=== PATIENT | female | born 1955 ===

== ENCOUNTER 2016-11-13 21:25 | Emergency (ER) | payer OTHER ==
[~2016-11-13 21:25] MED LIST: BENADRYL25 M1 PO; SUBOXONE1 MI2 SL
--- NOTE | 2016-11-13 23:38 | ED CLINICAL REPORT ---
Clinical Report - Physicians/Mid Levels [facility] [address] [place] [address] 11/13/2016 21:27 Patient: WALLY CASTRO Time Seen: 21:50. Arrived- By private vehicle. Historian- patient. HISTORY OF PRESENT ILLNESS Chief Complaint: LESION. This started several days ago and is still present. It was gradual in onset and has been constant. It is described as painful. It has been located on the left shoulder and left buttock. A cause has been identified (Injecting heroin at these sites). Similar symptoms previously: Many times. REVIEW OF SYSTEMS No chills, fever, sweats, calf pain or chest pain. No cough, difficulty breathing, pedal edema, palpitations or abdominal pain. No constipation, diarrhea, nausea, vomiting or urinary problems. All systems otherwise negative, except as recorded above. PAST HISTORY Problems: Abcesses. Substance Abuse. Additional Surgeries: Hysterectomy. Medications: None. Allergies: No Known Drug Allergy. SOCIAL HISTORY Current every day heavy tobacco smoker (cigarette)- 1 pack per day. History of drug use: heroin. No alcohol use. FAMILY HISTORY No significant family medical history. ADDITIONAL NOTES The nursing notes have been reviewed. PHYSICAL EXAM Vital Signs: 11/13/2016 21:34 BP: 138/79. HR: 85. RR: 18. O2 saturation: 99%. Temp: 99.9 F. Have been reviewed. Eyes: Pupils equal, round and reactive to light. ENT: Pharynx normal. Neck: Neck supple. CVS: Normal heart rate and rhythm. Heart sounds normal. Respiratory: No respiratory distress. Breath sounds normal. Abdomen: Nontender. No organomegaly. Skin: Large area of cellulitis with tenderness, erythema and warmth to left buttock. Single large abscess with fluctuance and cellulitis to left arm. Extremities: No calf tenderness. PROGRESS AND PROCEDURES Incision & Drainage of Abscess: Time-out completed immediately before the procedure. The abscess is located in the left arm. The risks of the procedure, benefits and alternatives were explained. Consent was obtained. Anesthesia provided using 2% lidocaine no epi. Skin cleansed with Betadine. The abscess was incised with a #11 surgical blade. A large amount of pus was drained. Cavity was irrigated with saline and packed with gauze. Sample obtained for cultures. A dressing was applied. Patient/family counseled. Old medical records ordered. Old records unavailable. Disposition: Discharged. Condition: stable. CLINICAL IMPRESSION Multiple deep abscesses with incision and drainage. INSTRUCTIONS (Continue warm packs on the area on your buttock as discussed. This does not appear ready to be drained at this point. It will likely come to a head over the next several days. Please have this area evaluated at your follow-up appointment as discussed.). Warnings: Further evaluation is necessary. GENERAL WARNINGS: Return or contact your physician immediately if your condition worsens or changes unexpectedly, if not improving as expected, or if other problems arise. Prescription Medications: Bactrim DS 800 mg / 160 mg: take 2 tablets orally every 12 hours for 10 days. No refill. Substitution is permissible. Understanding of the discharge instructions verbalized by patient. Follow-up with: [facility], , , [address] [address] Follow up Sunday in two days for wound check and packing removal. Call for an appointment. (Electronically signed by Sam Garcia MD 11/13/2016 23:55)
--- NOTE | 2016-11-13 23:38 | ED ORDER SUMMARY ---
..... Patient: WALLY CASTRO OrderSheet [facility] VisitID: [id number] [address] [place] [address] 61y, F Registration Date/Time: 11/13/2016 ORDER SHEET Weight: 58.9 kg (stated) Allergies: No Known Drug Allergy GENERAL ORDERS: Culture, Wound Deep (Arm) (abcess) Urgent (23:33 11/13/2016 Barbara LEDESMA) (Ack 23:34 AMcQuoid ER Tech1) (23:46 Boniwiporsche R.N.) MEDICATION ORDERS: Lidocaine Injection 2 % (soln) (NOW, place at bedside, with syringes & needles) (23:15 11/13/2016 ROZINAndjose david R.N. verbal order read back to Barbara LEDESMA) (23:16 EIndjose david R.N.) IV FLUIDS: ORDER SHEET NOTES: [Electronically signed by Matias Smith R.N. (23:49 11/13/2016)] [Electronically signed by Sam Garcia MD (23:55 11/13/2016)] [Electronically locked/signed by Matias Smith R.N. (23:49 11/13/2016)]
--- NOTE | 2016-11-13 23:38 | ED CLINICAL REPORT ---
Clinical Report - Physicians/Mid Levels [facility] [address] [place] [address] 11/13/2016 21:27 Patient: WALLY CASTRO Time Seen: 21:50. Arrived- By private vehicle. Historian- patient. HISTORY OF PRESENT ILLNESS Chief Complaint: LESION. This started several days ago and is still present. It was gradual in onset and has been constant. It is described as painful. It has been located on the left shoulder and left buttock. A cause has been identified (Injecting heroin at these sites). Similar symptoms previously: Many times. REVIEW OF SYSTEMS No chills, fever, sweats, calf pain or chest pain. No cough, difficulty breathing, pedal edema, palpitations or abdominal pain. No constipation, diarrhea, nausea, vomiting or urinary problems. All systems otherwise negative, except as recorded above. PAST HISTORY Problems: Abcesses. Substance Abuse. Additional Surgeries: Hysterectomy. Medications: None. Allergies: No Known Drug Allergy. SOCIAL HISTORY Current every day heavy tobacco smoker (cigarette)- 1 pack per day. History of drug use: heroin. No alcohol use. FAMILY HISTORY No significant family medical history. ADDITIONAL NOTES The nursing notes have been reviewed. PHYSICAL EXAM Vital Signs: 11/13/2016 21:34 BP: 138/79. HR: 85. RR: 18. O2 saturation: 99%. Temp: 99.9 F. Have been reviewed. Eyes: Pupils equal, round and reactive to light. ENT: Pharynx normal. Neck: Neck supple. CVS: Normal heart rate and rhythm. Heart sounds normal. Respiratory: No respiratory distress. Breath sounds normal. Abdomen: Nontender. No organomegaly. Skin: Large area of cellulitis with tenderness, erythema and warmth to left buttock. Single large abscess with fluctuance and cellulitis to left arm. Extremities: No calf tenderness. PROGRESS AND PROCEDURES Incision & Drainage of Abscess: Time-out completed immediately before the procedure. The abscess is located in the left arm. The risks of the procedure, benefits and alternatives were explained. Consent was obtained. Anesthesia provided using 2% lidocaine no epi. Skin cleansed with Betadine. The abscess was incised with a #11 surgical blade. A large amount of pus was drained. Cavity was irrigated with saline and packed with gauze. Sample obtained for cultures. A dressing was applied. Patient/family counseled. Old medical records ordered. Old records unavailable. Disposition: Discharged. Condition: stable. CLINICAL IMPRESSION Multiple deep abscesses with incision and drainage. INSTRUCTIONS (Continue warm packs on the area on your buttock as discussed. This does not appear ready to be drained at this point. It will likely come to a head over the next several days. Please have this area evaluated at your follow-up appointment as discussed.). Warnings: Further evaluation is necessary. GENERAL WARNINGS: Return or contact your physician immediately if your condition worsens or changes unexpectedly, if not improving as expected, or if other problems arise. Prescription Medications: Bactrim DS 800 mg / 160 mg: take 2 tablets orally every 12 hours for 10 days. No refill. Substitution is permissible. Understanding of the discharge instructions verbalized by patient. Follow-up with: [facility], , , [address] [address] Follow up Sunday in two days for wound check and packing removal. Call for an appointment. (Electronically signed by Sam Garcia MD 11/13/2016 23:55)
--- NOTE | 2016-11-13 23:38 | ED NURSING NOTES ---
Clinical Report - Nurses [facility] [address] [place] [address] 11/13/2016 21:27 [id number] Triage time 21:Nov 13 2016. Acuity: LEVEL 3. Chief Complaint: BOIL and TENDER AREA. 21:34 11/13/16. SEPSIS SCREEN: Sepsis Screen. Infection suspected/documented. Physician notified. HUBER COMA SCORE: [place] Coma Scale: 15- eyes open spontaneously (4); best verbal response- oriented x 4 (5); best motor response- obeys commands (6). --21:42 Ilana Mallory R.N. 21:34 11/13/16. BP: 138/79. HR: 85. RR: 18. O2 saturation: 99%. Temp: 99.9 F. Pain level now 10/10. --21:42 Ilana Mallory R.N. Weight: 58.9 kg stated. Height/Length: 60 inches Per Patient. BMI: 25.4. --21:33 Ilana Mallory R.N. Medications None. --21:39 Ilana Mallory R.N. Medication/allergy information source: the patient. --21:42 Ilana Mallory R.N. Allergies No Known Drug Allergy. --21:39 Ilana Mallory R.N. History Arrived by private vehicle. Historian: patient. Accompanied by family. Reported as (rt and left upper arm, right buttock). Onset. (2 - 3 days). It is described as burning and painful. ( States using heroin, abcesses at injection sites). No fever, muscle aches, cough, difficulty breathing or itching. No weakness. 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 PAST MEDICAL HX: Has not received tetanus. SOCIAL HX: Heavy tobacco smoker (cigarette)- 1 pack per day. History of drug use: heroin. No alcohol use. No infectious disease exposure. ABUSE ASSESSMENT: No report of abuse. SELF HARM ASSESSMENT: A self harm assessment was performed. The patient answered "no" to the question "Have you recently felt down, depressed, or hopeless?", "Have you noticed less interest or pleasure in doing things?", "Do you have thoughts of harming or killing yourself?", "Are you here because you tried to hurt yourself?", "Have you ever tried to hurt yourself before today?", "Have you recently had thoughts about harming or killing others?" and "Do you have any dangerous items in your possession?". NUTRITIONAL RISK ASSESSMENT: The nutritional risk assessment revealed no deficiencies. FUNCTIONAL ASSESSMENT: Functional assessment: no impairments noted. LEARNING NEEDS ASSESSMENT: The learning needs assessment revealed no barriers. SKIN INTEGRITY ASSESSMENT: Skin integrity risk assessment completed. No skin integrity risk identified. --21:42 Ilana Mallory R.N. PROBLEMS: Abcesses. Substance Abuse. --21:39 Ilana Mallory R.N. ADDITIONAL SURGERIES: Hysterectomy. --21:39 Ilana Mallory R.N. Interventions ID band on patient. --21:42 Ilana Mallory R.N. PHYSICAL ASSESSMENT 21:35 11/13/16. Ambulatory to room. GENERAL / NEURO / PSYCH: Alert. Oriented X 4. HEENT: Pupils equal, round and reactive to light. Mucous membranes are pink. RESPIRATORY: Breath sounds within normal limits. CVS: Pulses within normal limits. GI / : Abdomen nontender. SKIN: Skin is warm. Swelling on the right arm, right buttock and left arm- associated with erythema, tenderness and increased warmth. No skin rash. --21:48 Ilana Mallory R.N. NURSING PROGRESS NOTES 21:35 11/13/16. The initial plan of care for this patient includes an assessment with efforts to address the presence of pain; impairment of the integumentary system. This plan of care was discussed with the patient. Patient gowned. Two patient identifiers checked. Call light placed in reach. Bed placed in lowest position. Brakes of bed on. Patient ready for evaluation. --21:49 Ilana Mallory R.N. 23:00 11/13/2016 Lidocaine Injection Injectable 2 % given. Allergies verified and confirmed 5 rights. (Med given to MD for local administration). --23:16 Ilana Mallory R.N. DISPOSITION / DISCHARGE Departure time: 23:48. Condition at departure: improved. No learning barriers present. Discharge instructions provided and reviewed with the patient. Reviewed medication(s) side effects, precautions, dosing and course information. Prescription(s) given to the patient (antibiotic). Patient verbalized understanding. Written instructions provided in [place]. The patient was discharged by the physician. She was discharged home and accompanied by sister. She left the Emergency Department ambulatory and via private vehicle. Driving (sister). ( pt showed no signs of distress or facial grimacing. Pt was hurting in the arm. she called for her sister to pick her up from the waiting area. wound culture was sent off). HUBER COMA SCORE: [place] Coma Scale: 15- eyes open spontaneously (4); best verbal response- oriented x 4 (5); best motor response- obeys commands (6). --23:49 Matias Smith R.N. 23:47 11/13/16. BP: 140/78. HR: 81. RR: 16. O2 saturation: 99%. Temp: 99.7 F. Pain level now 8/10. --23:49 Matias Smith R.N. Locked/Released at 11/13/2016 23:49 by Matias Smith R.N.
--- NOTE | 2016-11-13 23:38 | ED ORDER SUMMARY ---
..... Patient: WALLY CASTRO OrderSheet [facility] VisitID: [id number] [address] [place] [address] 61y, F Registration Date/Time: 11/13/2016 ORDER SHEET Weight: 58.9 kg (stated) Allergies: No Known Drug Allergy GENERAL ORDERS: Culture, Wound Deep (Arm) (abcess) Urgent (23:33 11/13/2016 Barbara LEDESMA) (Ack 23:34 AMcQuoid ER Tech1) (23:46 Boniwiporsche R.N.) MEDICATION ORDERS: Lidocaine Injection 2 % (soln) (NOW, place at bedside, with syringes & needles) (23:15 11/13/2016 ROZINAndjose david R.N. verbal order read back to Babrara LEDESMA) (23:16 EIndjose david R.N.) IV FLUIDS: ORDER SHEET NOTES: [Electronically signed by Matias Smith R.N. (23:49 11/13/2016)] [Electronically signed by Sam Garcia MD (23:55 11/13/2016)] [Electronically locked/signed by Matias Smith R.N. (23:49 11/13/2016)]
--- NOTE | 2016-11-13 23:55 | ED DISCHARGE INSTRUCTIONS ---
Patient: WALLY CASTRO General Instructions [facility] VisitID: [id number] [place] [address] 61y, F Registration Date/Time: 11/13/2016 Multiple deep abscesses with incision and drainage. INSTRUCTIONS (Continue warm packs on the area on your buttock as discussed. This does not appear ready to be drained at this point. It will likely come to a head over the next several days. Please have this area evaluated at your follow-up appointment as discussed.). Warnings: Further evaluation is necessary. GENERAL WARNINGS: Return or contact your physician immediately if your condition worsens or changes unexpectedly, if not improving as expected, or if other problems arise. Prescription Medications: Bactrim DS 800 mg / 160 mg: take 2 tablets orally every 12 hours for 10 days. No refill. Substitution is permissible. Understanding of the discharge instructions verbalized by patient. Follow-up with: [facility], , , [address] [place] [address], [address] [address] Follow up Sunday in two days for wound check and packing removal. Call for an appointment. ADDITIONAL INFORMATION Abscess [Incision & Drainage] An abscess (sometimes called a boil) occurs when bacteria get trapped under the skin and begin to grow. Pus forms inside the abscess as the body responds to the bacteria. An abscess can occur with an insect bite, ingrown hair, blocked oil gland, pimple, cyst, or puncture wound. Treatment of your abscess has required an incision to drain the pus. If the abscess pocket was large, a gauze packing may have been inserted. This will need to be removed and possibly replaced on your next visit. Antibiotics are not required in the treatment of a simple abscess, unless the infection is spreading into the skin around the wound (known as cellulitis). Healing of the wound will take about one to two weeks depending on the size of the abscess. Healthy tissue will grow from the bottom and sides of the opening until it seals over. Home Care: The wound may drain for the first two days. Cover the wound with a clean dry dressing. If the dressing becomes soaked with blood or pus, change it. If a gauze packing was placed inside the abscess cavity, you may be advised to remove it yourself. You may do this in the shower. Once the packing is removed, you should wash the area in the shower or bath 3 to 4 times a day, until the skin opening has closed. If you were prescribed antibiotics, take them as directed until they are all gone. You may use acetaminophen (Tylenol) or ibuprofen (Motrin, Advil) to control pain, unless another pain medicine was prescribed. [ NOTE: If you have liver disease or ever had a stomach ulcer, talk with your doctor before using these medicines.] Follow Up with your doctor as advised by our staff. If a gauze packing was inserted in your wound, it should be removed in 1-2 days. Check your wound every day for the signs of worsening infection listed below. Get Prompt Medical Attention if any of the following occur: Increasing redness or swelling Red streaks in the skin leading away from the wound Increasing local pain or swelling Continued pus draining from the wound two days after treatment Fever of 100.4F (38C) or higher, or as directed by your healthcare provider Abscess (Antibiotic Treatment Only) An abscess (sometimes called a boil) occurs when bacteria get trapped under the skin and begin to grow. Pus forms inside the abscess as the body responds to the bacteria. An abscess can occur with an insect bite, ingrown hair, blocked oil gland, pimple, cyst, or puncture wound. In the early stages, redness and tenderness are the only symptoms. Sometimes, this stage can be treated with antibiotics alone. If the abscess does not respond to antibiotic treatment, it will need to be drained with a small cut, under local anesthesia. Home care The following will help you care for your abscess at home: Soak the wound in hot water or apply hot packs (small towel soaked in hot water) to the area for 20 minutes at a time. Do this three to four times a day. Apply antibiotic cream or ointment onto the skin 3-4 times a day, unless something else was prescribed. Some ointments include an antibiotic plus a local pain reliever. If your doctor prescribed antibiotics, do not stop taking this medication until you have finished the prescribed course or the doctor tells you to stop. You may use an [id number] pain medication to control pain, unless another pain medicine was prescribed. If you have chronic liver or kidney disease or ever had a stomach ulcer or GI bleeding, talk with your doctor before using these any of these. Follow-up care Follow up with your health care provider as advised by our staff. Look at your wound each day for the signs of worsening infection listed below. When to seek medical care Get prompt medical attention if any of the following occur: An increase in redness or swelling Red streaks in the skin leading away from the abscess An increase in local pain or swelling Fever of 100.4F (38C) or higher, or as directed by your health care provider Pus or fluid coming from the abscess Sulfamethoxazole, Trimethoprim Oral tablet What is this medicine? SULFAMETHOXAZOLE; TRIMETHOPRIM or SMX-TMP (suhl fuh meth OK astrid zohl; trye METH oh prim) is a combination of a sulfonamide antibiotic and a second antibiotic, trimethoprim. It is used to treat or prevent certain kinds of bacterial infections. It will not work for colds, flu, or other viral infections. How should I use this medicine? Take this medicine by mouth with a full glass of water. Follow the directions on the prescription label. Take your medicine at regular intervals. Do not take it more often than directed. Do not skip doses or stop your medicine early. Talk to your manager configuration regarding the use of this medicine in children. Special care may be needed. This medicine has been used in children as young as 2 months of age. What side effects may I notice from receiving this medicine? Side effects that you should report to your doctor or health disabilities caregiver as soon as possible: allergic reactions like skin rash or hives, swelling of the face, lips, or tongue breathing problems fever or chills, sore throat irregular heartbeat, chest pain joint or muscle pain pain or difficulty passing urine red pinpoint spots on skin redness, blistering, peeling or loosening of the skin, including inside the mouth unusual bleeding or bruising unusually weak or tired yellowing of the eyes or skin Side effects that usually do not require medical attention (report to your doctor or health disabilities caregiver if they continue or are bothersome): diarrhea dizziness headache loss of appetite nausea, vomiting nervousness What may interact with this medicine? Do not take this medicine with any of the following medications: aminobenzoate potassium dofetilide metronidazole This medicine may also interact with the following medications: IZAIAH inhibitors like benazepril, enalapril, lisinopril, and ramipril cyclosporine digoxin diuretics indomethacin medicines for diabetes methenamine methotrexate phenytoin potassium supplements pyrimethamine sulfinpyrazone tricyclic antidepressants warfarin What if I miss a dose? If you miss a dose, take it as soon as you can. If it is almost time for your next dose, take only that dose. Do not take double or extra doses. Where should I keep my medicine? Keep out of the reach of children. Store at room temperature between 20 to 25 degrees C (68 to 77 degrees F). Protect from light. Throw away any unused medicine after the expiration date. What should I tell my health care provider before I take this medicine? They need to know if you have any of these conditions: anemia asthma being treated with anticonvulsants if you frequently drink alcohol containing drinks kidney disease liver disease low level of folic acid or [id number] dehydrogenase poor nutrition or malabsorption porphyria severe allergies thyroid disorder an unusual or allergic reaction to sulfamethoxazole, trimethoprim, sulfa drugs, other medicines, foods, dyes, or preservatives or trying to get breast-feeding What should I watch for while using this medicine? Tell your doctor or health disabilities caregiver if your symptoms do not improve. Drink several glasses of water a day to reduce the risk of kidney problems. Do not treat diarrhea with over the counter products. Contact your doctor if you have diarrhea that lasts more than 2 days or if it is severe and watery. This medicine can make you more sensitive to the sun. Keep out of the sun. If you cannot avoid being in the sun, wear protective clothing and use a sunscreen. Do not use sun lamps or tanning beds/booths. You have been given the following additional information: Abscess, Incision And Drainage Abscess, Antiobiotic Treatment Only Sulfamethoxazole, Trimethoprim Oral tablet (Electronically signed by Sam Garcia MD 11/13/2016 23:55)
--- NOTE | 2016-11-13 23:55 | ED DISCHARGE INSTRUCTIONS ---
Patient: WALLY CASTRO General Instructions [facility] VisitID: [id number] [place] [address] 61y, F Registration Date/Time: 11/13/2016 Multiple deep abscesses with incision and drainage. INSTRUCTIONS (Continue warm packs on the area on your buttock as discussed. This does not appear ready to be drained at this point. It will likely come to a head over the next several days. Please have this area evaluated at your follow-up appointment as discussed.). Warnings: Further evaluation is necessary. GENERAL WARNINGS: Return or contact your physician immediately if your condition worsens or changes unexpectedly, if not improving as expected, or if other problems arise. Prescription Medications: Bactrim DS 800 mg / 160 mg: take 2 tablets orally every 12 hours for 10 days. No refill. Substitution is permissible. Understanding of the discharge instructions verbalized by patient. Follow-up with: [facility], , , [address] [place] [address], [place] [id number] Follow up Sunday in two days for wound check and packing removal. Call for an appointment. ADDITIONAL INFORMATION Abscess [Incision & Drainage] An abscess (sometimes called a boil) occurs when bacteria get trapped under the skin and begin to grow. Pus forms inside the abscess as the body responds to the bacteria. An abscess can occur with an insect bite, ingrown hair, blocked oil gland, pimple, cyst, or puncture wound. Treatment of your abscess has required an incision to drain the pus. If the abscess pocket was large, a gauze packing may have been inserted. This will need to be removed and possibly replaced on your next visit. Antibiotics are not required in the treatment of a simple abscess, unless the infection is spreading into the skin around the wound (known as cellulitis). Healing of the wound will take about one to two weeks depending on the size of the abscess. Healthy tissue will grow from the bottom and sides of the opening until it seals over. Home Care: The wound may drain for the first two days. Cover the wound with a clean dry dressing. If the dressing becomes soaked with blood or pus, change it. If a gauze packing was placed inside the abscess cavity, you may be advised to remove it yourself. You may do this in the shower. Once the packing is removed, you should wash the area in the shower or bath 3 to 4 times a day, until the skin opening has closed. If you were prescribed antibiotics, take them as directed until they are all gone. You may use acetaminophen (Tylenol) or ibuprofen (Motrin, Advil) to control pain, unless another pain medicine was prescribed. [ NOTE: If you have liver disease or ever had a stomach ulcer, talk with your doctor before using these medicines.] Follow Up with your doctor as advised by our staff. If a gauze packing was inserted in your wound, it should be removed in 1-2 days. Check your wound every day for the signs of worsening infection listed below. Get Prompt Medical Attention if any of the following occur: Increasing redness or swelling Red streaks in the skin leading away from the wound Increasing local pain or swelling Continued pus draining from the wound two days after treatment Fever of 100.4F (38C) or higher, or as directed by your healthcare provider Abscess (Antibiotic Treatment Only) An abscess (sometimes called a boil) occurs when bacteria get trapped under the skin and begin to grow. Pus forms inside the abscess as the body responds to the bacteria. An abscess can occur with an insect bite, ingrown hair, blocked oil gland, pimple, cyst, or puncture wound. In the early stages, redness and tenderness are the only symptoms. Sometimes, this stage can be treated with antibiotics alone. If the abscess does not respond to antibiotic treatment, it will need to be drained with a small cut, under local anesthesia. Home care The following will help you care for your abscess at home: Soak the wound in hot water or apply hot packs (small towel soaked in hot water) to the area for 20 minutes at a time. Do this three to four times a day. Apply antibiotic cream or ointment onto the skin 3-4 times a day, unless something else was prescribed. Some ointments include an antibiotic plus a local pain reliever. If your doctor prescribed antibiotics, do not stop taking this medication until you have finished the prescribed course or the doctor tells you to stop. You may use an [id number] pain medication to control pain, unless another pain medicine was prescribed. If you have chronic liver or kidney disease or ever had a stomach ulcer or GI bleeding, talk with your doctor before using these any of these. Follow-up care Follow up with your health care provider as advised by our staff. Look at your wound each day for the signs of worsening infection listed below. When to seek medical care Get prompt medical attention if any of the following occur: An increase in redness or swelling Red streaks in the skin leading away from the abscess An increase in local pain or swelling Fever of 100.4F (38C) or higher, or as directed by your health care provider Pus or fluid coming from the abscess Sulfamethoxazole, Trimethoprim Oral tablet What is this medicine? SULFAMETHOXAZOLE; TRIMETHOPRIM or SMX-TMP (suhl fuh meth OK astrid zohl; trye METH oh prim) is a combination of a sulfonamide antibiotic and a second antibiotic, trimethoprim. It is used to treat or prevent certain kinds of bacterial infections. It will not work for colds, flu, or other viral infections. How should I use this medicine? Take this medicine by mouth with a full glass of water. Follow the directions on the prescription label. Take your medicine at regular intervals. Do not take it more often than directed. Do not skip doses or stop your medicine early. Talk to your housing and residence life director regarding the use of this medicine in children. Special care may be needed. This medicine has been used in children as young as 2 months of age. What side effects may I notice from receiving this medicine? Side effects that you should report to your doctor or health acute care physician as soon as possible: allergic reactions like skin rash or hives, swelling of the face, lips, or tongue breathing problems fever or chills, sore throat irregular heartbeat, chest pain joint or muscle pain pain or difficulty passing urine red pinpoint spots on skin redness, blistering, peeling or loosening of the skin, including inside the mouth unusual bleeding or bruising unusually weak or tired yellowing of the eyes or skin Side effects that usually do not require medical attention (report to your doctor or health acute care physician if they continue or are bothersome): diarrhea dizziness headache loss of appetite nausea, vomiting nervousness What may interact with this medicine? Do not take this medicine with any of the following medications: aminobenzoate potassium dofetilide metronidazole This medicine may also interact with the following medications: IZAIAH inhibitors like benazepril, enalapril, lisinopril, and ramipril cyclosporine digoxin diuretics indomethacin medicines for diabetes methenamine methotrexate phenytoin potassium supplements pyrimethamine sulfinpyrazone tricyclic antidepressants warfarin What if I miss a dose? If you miss a dose, take it as soon as you can. If it is almost time for your next dose, take only that dose. Do not take double or extra doses. Where should I keep my medicine? Keep out of the reach of children. Store at room temperature between 20 to 25 degrees C (68 to 77 degrees F). Protect from light. Throw away any unused medicine after the expiration date. What should I tell my health care provider before I take this medicine? They need to know if you have any of these conditions: anemia asthma being treated with anticonvulsants if you frequently drink alcohol containing drinks kidney disease liver disease low level of folic acid or eypdsif-6-tammnupyd dehydrogenase poor nutrition or malabsorption porphyria severe allergies thyroid disorder an unusual or allergic reaction to sulfamethoxazole, trimethoprim, sulfa drugs, other medicines, foods, dyes, or preservatives or trying to get breast-feeding What should I watch for while using this medicine? Tell your doctor or health acute care physician if your symptoms do not improve. Drink several glasses of water a day to reduce the risk of kidney problems. Do not treat diarrhea with over the counter products. Contact your doctor if you have diarrhea that lasts more than 2 days or if it is severe and watery. This medicine can make you more sensitive to the sun. Keep out of the sun. If you cannot avoid being in the sun, wear protective clothing and use a sunscreen. Do not use sun lamps or tanning beds/booths. You have been given the following additional information: Abscess, Incision And Drainage Abscess, Antiobiotic Treatment Only Sulfamethoxazole, Trimethoprim Oral tablet (Electronically signed by Sam Garcia MD 11/13/2016 23:55)
--- NOTE | 2016-11-13 23:56 | ED MED RECONCILIATION SUMMARY ---
Patient: WALLY CASTRO Medication Reconciliation Report [facility] VisitID: [id number] [address] [place] [address] 61y, F Registration Date/Time: 11/13/2016 Weight: 58.9 kg Height/Length: 60 in. BMI: 25.4 ALLERGIES: No Known Drug Allergy The patient's Home Medications are listed below: NONE. The source(s) of the original Home Medication information: patient The following Medications were given to the patient in the Emergency Department: Lidocaine [Injection] Injection 2 %, administered: 11/13/2016 11:00:00 PM The following Medications were prescribed to the patient: Bactrim DS 800 mg / 160 mg: take 2 tablets orally every 12 hours for 10 days. No refill. Substitution is permissible. -- Sam Garcia MD
--- NOTE | 2016-11-13 23:56 | ED MAR SUMMARY ---
..... Medication Administration Record [facility] [address] [place] [address] Patient: WALLY CASTRO Visit ID: [id number] 61y, F Weight: 58.9 kg Height/Length: 60 in BMI: 25.4 ALLERGIES: No Known Drug Allergy Given 23:00 11/13/2016 Ilana Mallory R.N. Medication Administered: LIDOCAINE [INJECTION], Dose: 2 % Injectable Injection. Medication Ordered: Lidocaine Injection 2 % (soln) (NOW, place at bedside, with syringes & needles).
--- NOTE | 2016-11-13 23:56 | ED MED RECONCILIATION SUMMARY ---
Patient: WALLY CASTRO Medication Reconciliation Report [facility] VisitID: [id number] [address] [place] [address] 61y, F Registration Date/Time: 11/13/2016 Weight: 58.9 kg Height/Length: 60 in. BMI: 25.4 ALLERGIES: No Known Drug Allergy The patient's Home Medications are listed below: NONE. The source(s) of the original Home Medication information: patient The following Medications were given to the patient in the Emergency Department: Lidocaine [Injection] Injection 2 %, administered: 11/13/2016 11:00:00 PM The following Medications were prescribed to the patient: Bactrim DS 800 mg / 160 mg: take 2 tablets orally every 12 hours for 10 days. No refill. Substitution is permissible. -- Sam Garcia MD
--- NOTE | 2016-11-13 23:56 | ED MAR SUMMARY ---
..... Medication Administration Record [facility] [address] [place] [address] Patient: WALLY CASTRO Visit ID: [id number] 61y, F Weight: 58.9 kg Height/Length: 60 in BMI: 25.4 ALLERGIES: No Known Drug Allergy Given 23:00 11/13/2016 Ilana Mallory R.N. Medication Administered: LIDOCAINE [INJECTION], Dose: 2 % Injectable Injection. Medication Ordered: Lidocaine Injection 2 % (soln) (NOW, place at bedside, with syringes & needles).
== END 2016-11-14 00:45 | disposition home or self-care (01) ==
LOC: ED SRH 21:25
DX: L02.414 Cutaneous abscess of left upper limb (principal); F17.210 Nicotine dependence, cigarettes, uncomplicated
CPT/HCPCS: 90131; 90309; 90470